=== PATIENT | female | born 1995 | race Caucasian/White ===

== ENCOUNTER 2016-09-14 09:25 | Emergency (ER) | payer OTHER ==
[2016-09-14] MEDS ORDERED: SODIUM CHLORIDE 0.9% 1,000 ML IV STA ×2 (09:28)
[2016-09-14] MEDS ORDERED: ONDANSETRON 4 MG/2 ML VIAL IVP STA (09:36)
[2016-09-14] MEDS ORDERED: HYDROmorphone 1 MG/ML 1 ML SYRINGE IVP STA (09:36)
--- NOTE | 2016-09-14 09:41 | ED ---
General Adult HPI - General Chief complaint: Abdominal Pain Stated complaint: appendix Time Seen by Provider: 09/14/16 09:28 Source: patient, RN notes reviewed Mode of arrival: wheelchair - History of Present Illness Initial comments: Patient's a 20-year-old female who presents emergency room today with a chief complaint of abdominal pain that started this morning after waking up. She describes it as sharp pain located in the right side of her abdomen. She states she's never had similar symptoms in the past. She states she does feel nauseated. Denies any other past medical history or surgical history. Patient denies any recent fever, chills, shortness of breath, chest pain, back pain, numbness or tingling, dysuria or hematuria, constipation or diarrhea, headaches or visual changes, or any other complaints. - Related Data Home Medications Medication Instructions Recorded Confirmed No Known Home Medications [No 03/14/15 03/14/15 Known Home Medications] Allergies Allergy/AdvReac Type Severity Reaction Status Date / Time No Known Allergies Allergy Verified 03/14/15 15:10 Review of Systems ROS Statement: Those systems with pertinent positive or pertinent negative responses have been documented in the HPI. ROS Other: All systems not noted in ROS Statement are negative. Past Medical History Past Medical History: No Reported History History of Any Multi-Drug Resistant Organisms: None Reported Past Surgical History: No Surgical Hx Reported Past Psychological History: No Psychological Hx Reported Smoking Status: Current every day smoker Past Alcohol Use History: None Reported Past Drug Use History: Marijuana General Exam - General Exam Comments Initial Comments: General: The patient is awake and alert, in mild distress. Eye: Pupils are equal, round and reactive to light, extra-ocular movements are intact. No nystagmus. There is normal conjunctiva bilaterally. No signs of icterus. Ears, nose, mouth and throat: There are moist mucous membranes and no oral lesions. Neck: The neck is supple, there is no tenderness or JVD. Cardiovascular: There is a regular rate and rhythm. No murmur, rub or gallop is appreciated. Respiratory: Lungs are clear to auscultation, respirations are non-labored, breath sounds are equal. No wheezes, stridor, rales, or rhonchi. Gastrointestinal: Normal appearance them. Normal bowel sounds. Abdomen soft on palpation. Patient does have mild tenderness right lower quadrant. Mild tenderness in epigastric. Increased tenderness right upper quadrant. Mild tenderness to the right CVA. No rebound tenderness. No guarding. Musculoskeletal: Normal ROM, no tenderness. Strength 5/5. Sensation intact. Pulses equal bilaterally 2+. Neurological: A&O x 3. CN II-XII intact, There are no obvious motor or sensory deficits. Coordination appears grossly intact. Speech is normal. Skin: Skin is warm and dry and no rashes or lesions are noted. Psychiatric: Cooperative, appropriate mood & affect, normal judgment. Course Vital Signs 09/14/16 09:27 Temperature 98.5 F Pulse Rate 91 Respiratory 20 Rate Blood Pressure 139/86 O2 Sat by Pulse 96 Oximetry Medical Decision Making - Medical Decision Making Case discussed in detail with attending physician Dr. Durand. Patient reexamined at this time shows no signs of distress. She is resting comfortably in the stretcher. Abdomen soft on palpation. His minimal to no tenderness at this time in the right side of the abdomen. Patient had both some mild right upper and some mild right lower quadrant tenderness. Patient does admit that this pain woke her up this morning. She states she's feeling much better at this time. She was given pain medicine here in emergency room. Her labs been reviewed and shows no elevated white count. Negative lactic acid. Her urinalysis shows a few white cells but a large amount of squamous cells as well. Urine culture will be added and pending as patient has no symptoms of dysuria or urinary tract infection. Results were discussed in detail with the patient and further options of a CT of the abdomen and pelvis were also discussed. Risk and benefits of CT were discussed. At this time she states she 's feeling comfortable and would rather wait on CAT scan. She states she would like to be discharged home will return if symptoms increase or worsen. - Lab Data Result diagrams: 09/14/16 09:33 09/14/16 09:33 Lab Results 09/14/16 09/14/16 09/14/16 Range/Units 09:33 09:33 09:33 WBC 9.0 (3.8-10.6) k/uL RBC 5.08 (3.80-5.40) m/uL Hgb 15.8 (11.4-16.0) gm/dL Hct 47.6 H (34.0-46.0) % MCV 93.8 (80.0-100.0) fL MCH 31.1 (25.0-35.0) pg MCHC 33.2 (31.0-37.0) g/dL RDW 12.6 (11.5-15.5) % Plt Count 249 (150-450) k/uL Neutrophils % 40 % Lymphocytes % 49 % Monocytes % 4 % Eosinophils % 4 % Basophils % 1 % Neutrophils # 3.6 (1.3-7.7) k/uL Lymphocytes # 4.4 (1.0-4.8) k/uL Monocytes # 0.4 (0-1.0) k/uL Eosinophils # 0.3 (0-0.7) k/uL Basophils # 0.1 (0-0.2) k/uL Sodium 143 (137-145) mmol/L Potassium 3.8 (3.5-5.1) mmol/L Chloride 108 H (98-107) mmol/L Carbon Dioxide 24 (22-30) mmol/L Anion Gap 11 mmol/L BUN 12 (7-17) mg/dL Creatinine 0.68 (0.52-1.04) mg/dL Est GFR (MDRD) Af Amer >60 (>60 ml/min/1.73 sqM) Est GFR (MDRD) Non-Af >60 (>60 ml/min/1.73 sqM) Glucose 95 (74-99) mg/dL Plasma Lactic Acid Miguel 1.0 (0.7-2.0) mmol/L Calcium 9.9 (8.4-10.2) mg/dL Total Bilirubin 1.0 (0.2-1.3) mg/dL AST 22 (14-36) U/L ALT 26 (9-52) U/L Alkaline Phosphatase 53 (38-126) U/L Total Protein 8.2 (6.3-8.2) g/dL Albumin 5.2 H (3.5-5.0) g/dL Amylase 97 (30-110) U/L Lipase 292 (23-300) U/L Urine Color Urine Appearance (Clear) Urine pH (5.0-8.0) Ur Specific [place] (1.001-1.035) Urine Protein (Negative) Urine Glucose (UA) (Negative) Urine Ketones (Negative) Urine Blood (Negative) Urine Nitrite (Negative) Urine Bilirubin (Negative) Urine Urobilinogen (<2.0) mg/dL Ur Leukocyte Esterase (Negative) Urine WBC (0-5) /hpf Ur Squamous Epith Cells (0-4) /hpf Urine Bacteria (None) /hpf Urine Mucus (None) /hpf Urine HCG, Qual (Not Detectd) 09/14/16 09/14/16 Range/Units 09:38 09:38 WBC (3.8-10.6) k/uL RBC (3.80-5.40) m/uL Hgb (11.4-16.0) gm/dL Hct (34.0-46.0) % MCV (80.0-100.0) fL MCH (25.0-35.0) pg MCHC (31.0-37.0) g/dL RDW (11.5-15.5) % Plt Count (150-450) k/uL Neutrophils % % Lymphocytes % % Monocytes % % Eosinophils % % Basophils % % Neutrophils # (1.3-7.7) k/uL Lymphocytes # (1.0-4.8) k/uL Monocytes # (0-1.0) k/uL Eosinophils # (0-0.7) k/uL Basophils # (0-0.2) k/uL Sodium (137-145) mmol/L Potassium (3.5-5.1) mmol/L Chloride (98-107) mmol/L Carbon Dioxide (22-30) mmol/L Anion Gap mmol/L BUN (7-17) mg/dL Creatinine (0.52-1.04) mg/dL Est GFR (MDRD) Af Amer (>60 ml/min/1.73 sqM) Est GFR (MDRD) Non-Af (>60 ml/min/1.73 sqM) Glucose (74-99) mg/dL Plasma Lactic Acid Miguel (0.7-2.0) mmol/L Calcium (8.4-10.2) mg/dL Total Bilirubin (0.2-1.3) mg/dL AST (14-36) U/L ALT (9-52) U/L Alkaline Phosphatase (38-126) U/L Total Protein (6.3-8.2) g/dL Albumin (3.5-5.0) g/dL Amylase (30-110) U/L Lipase (23-300) U/L Urine Color Yellow Urine Appearance Turbid H (Clear) Urine pH 5.5 (5.0-8.0) Ur Specific [place] 1.025 (1.001-1.035) Urine Protein 1+ H (Negative) Urine Glucose (UA) Negative (Negative) Urine Ketones Negative (Negative) Urine Blood Trace H (Negative) Urine Nitrite Negative (Negative) Urine Bilirubin Negative (Negative) Urine Urobilinogen <2.0 (<2.0) mg/dL Ur Leukocyte Esterase Large H (Negative) Urine WBC 11 H (0-5) /hpf Ur Squamous Epith Cells 45 H (0-4) /hpf Urine Bacteria Rare H (None) /hpf Urine Mucus Rare H (None) /hpf Urine HCG, Qual Not Detected (Not Detectd) Disposition Clinical Impression: Abdominal pain Disposition: HOME SELF-CARE Condition: Good Instructions: Abdominal Pain (ED) Additional Instructions: Please use Tylenol as discussed. Please follow-up with family doctor in the next 2 days of symptoms have not improved. Please return to emergency room if the symptoms increase or worsen or for any other concerns. Referrals: Heron Vanegas MD [Primary Care Provider] - 1-2 days Time of Disposition: 10:39
[2016-09-14 10:01] LABS: Basophils # (A) 0.1 k/uL (0-0.2); Basophils % (A) 1 %; CHCM 34.3; Eosinophils # (A) 0.3 k/uL (0-0.7); Eosinophils % (A) 4 %; HCT 47.6 % (34.0-46.0); HDW 2.25; HGB 15.8 gm/dL (11.4-16.0); Luc % (Auto) 2; Lymphocytes # (A) 4.4 k/uL (1.0-4.8); Lymphocytes % (A) 49 %; MCH 31.1 pg (25.0-35.0); MCHC 33.2 g/dL (31.0-37.0); MCV 93.8 fL (80.0-100.0); Mean Platelet Volume 6.7; Monocytes # (A) 0.4 k/uL (0-1.0); Monocytes % (A) 4 %; Neutrophils # (A) 3.6 k/uL (1.3-7.7); Neutrophils % (A) 40 %; RBC 5.08 m/uL (3.80-5.40); RDW 12.6 % (11.5-15.5); WBC (Perox) 8.15
[2016-09-14 10:06] LABS: Appearance,Urine Turbid (Clear); Bacteria,Urine Rare /hpf; Bilirubin,Urine Negative (Negative); Glucose,Urine (UA) Negative (Negative); Ketones,Urine Negative (Negative); Leukocyte Esterase,Urine Large (Negative); Mucus,Urine Rare /hpf; Nitrite,Urine Negative (Negative); PH, Urine 5.5 (5.0-8.0); Particle Count 47934; Protein,Urine 1+ (Negative); Specific Gravity,Urine 1.025 (1.001-1.035); Squamous Epithelial Cell,Urine 45 /hpf (0-4); UA Billing (MACRO vs. MICRO) MICRO; Urobilinogen,Urine <2.0 mg/dL (<2.0); WBC,Urine 11 /hpf (0-5)
[2016-09-14 10:13] LABS: ALT 26 U/L (9-52); AST 22 U/L (14-36); Alkaline Phosphatase 53 U/L (38-126); Amylase 97 U/L (30-110); Anion Gap 11 mmol/L; Blood Urea Nitrogen 12 mg/dL (7-17); Calcium 9.9 mg/dL (8.4-10.2); Carbon Dioxide 24 mmol/L (22-30); Chloride 108 mmol/L (98-107); Glucose 95 mg/dL (74-99); Non-African American GFR(MDRD) >60 (>60 ml/min/1.73 sqM); Potassium 3.8 mmol/L (3.5-5.1); Sodium 143 mmol/L (137-145); Total Protein 8.2 g/dL (6.3-8.2)
--- NOTE | 2016-09-14 10:39 | XR ---
EXAMINATION TYPE: XR KUB DATE OF EXAM: 09/14/2016 CLINICAL HISTORY: Right-sided abdominal pain today. TECHNIQUE: 2 upright KUB images of the abdomen are obtained COMPARISON: Abdominal x-ray May 29, 2012. FINDINGS: Scattered gas is seen in non-distended small bowel loops. Gas and fecal material is seen in non-distended colon. Dextroconvex scoliotic curvature centered in the upper lumbar spine is redemo nstrated. Spina bifida defect S1 levels again seen. No pneumoperitoneum is present. No suspicious josesito cifications are seen. Lung bases are clear. IMPRESSION: Overall nonobstructive bowel gas pattern. No significant change from prior.
[2016-09-14 10:53] VITALS: BP 110/55; PULSE 67; RESP 16; TEMP 97.7
== END 2016-09-14 10:53 | disposition home or self-care (01) ==
LOC: EC 09:25
DX: R10.11 Right upper quadrant pain (principal); R10.31 Right lower quadrant pain; R11.0 Nausea; F17.200 Nicotine dependence, unspecified, uncomplicated
CPT/HCPCS: 36415; 80053; 82150; 83605; 83690; 85025; 81001; 81025; 74000; 99284; 96374; 96375; 96361; J2405; J1170

== ENCOUNTER → 2017-04-17 | Outpatient (CLI) | payer OTHER ==
--- NOTE | 2017-04-17 23:31 | EEG ---
ELECTROENCEPHALOGRAM REPORT DATE OF EE04/17/2017. REFERRING PHYSICIAN: Dr. Godinez. INTERPRETING PHYSICIAN: Dr. Pattie Treviño. INDICATION FOR EXAMINATION: This patient is a 21-year-old female being evaluated for syncopal episode and collapse. Patient has been experiencing 2-3 syncopal episodes per day with symptoms of aura, loss of consciousness and shaking of both arms. Most recent episode lasted 1-1.5 minutes in duration with loss of consciousness. AGE: 21. EEG FINDINGS: A routine 21-channel awake digital EEG recording was accomplished utilizing the 10-20 international system with bipolar and referential montages. The background activity in the most alert resting state consists of a low to medium amplitude, fairly well- developed and well-sustained 7-8 Hz activity over the posterior head region. This posterior rhythm attenuates to eye opening. There is a small amount of low amplitude 18-20 Hz beta activity seen maximally over the anterior head regions. Muscle and movement artifact was observed on a few occasions during the tracing. Hyperventilation was completed. During hyperventilation, there is evidence for bitemporal sharp wave discharge lasting 4 seconds in duration. Photic stimulation at flash frequencies of 2-30 Hz produced a good symmetrical occipital driving response. The main feature of this tracing is the occurrence during hyperventilation of small epileptiform discharges emanating from the bitemporal region at T3 and T4 electrodes. IMPRESSION: This EEG is abnormal due to the finding of epileptiform discharges occurring bitemporally during hyperventilation. 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 Further evaluation with neuro imaging and followup is highly recommended. Clinical correlation is recommended. MMODL / IJN: [id number] /
== END | disposition home or self-care (01) ==
LOC: NEUROMAIN 13:07
PROVIDERS: ATTEND Family Medicine
DX: R94.01 Abnormal electroencephalogram [EEG] (principal)
CPT/HCPCS: 95816

== ENCOUNTER 2018-08-30 13:19 | Outpatient (CLI) | payer OTHER ==
[2018-08-30 15:05] LABS: Amorphous Sediment,Urine Occasional /hpf; Appearance,Urine Cloudy (Clear); Bacteria,Urine Occasional /hpf; Bilirubin,Urine Negative (Negative); Blood,Urine Negative (Negative); Color,Urine Yellow; Glucose,Urine (UA) Negative (Negative); Ketones,Urine Negative (Negative); Leukocyte Esterase,Urine Moderate (Negative); Mucus,Urine Rare /hpf; Nitrite,Urine Negative (Negative); PH, Urine 7.5 (5.0-8.0); Protein,Urine Negative (Negative); Specific Gravity,Urine 1.013 (1.001-1.035); Squamous Epithelial Cell,Urine 15 /hpf (0-4); Urobilinogen,Urine <2.0 mg/dL (<2.0); WBC,Urine 127 /hpf (0-5)
[2018-08-30] MEDS ORDERED: CEPHALEXIN 500 MG CAP PO STA (16:21)
--- NOTE | 2018-09-02 08:36 | P.MSEPDOC ---
Presenting Problems - Arrival Data Date of Arrival on Unit: 08/30/18 Time of Arrival on Unit: 13:19 Mode of Transport: Ambulatory - Complaint OB-Reason for Admission/Chief Complaint: Observation/Evaluation Comment: abd pain Medical History - Information : 2 Para: 1 Term: 1 : 0 Abortions: Spontaneous or Elective: 0 Number of Living Children: 1 Physician Notification (Pre) - Physician Notified Physician Notified Date: 08/30/18 Physician Notified Time: 16:15 Physician/Practitioner Notifed:: Dhiraj - Notification Comment Comment: eval done by Dr. Hearn Disposition - Disposition OB Disposition: Discharge to home Discharge Date: 08/30/18 Discharge Time: 16:40 I agree with the RN Medical Screening Exam: Yes Risk & Benefit of care provided described in d/c instruction: Yes Diagnosis: RELATED CONDITIONS, UNSP, UNSPECIFIED TRIMESTER
== END 2018-08-30 16:40 | disposition home or self-care (01) ==
LOC: FBPOP 13:19
PROVIDERS: ATTEND Obstetrics & Gynecology
DX: O26.90 Pregnancy related conditions, unspecified, unspecified trimester (principal)
CPT/HCPCS: 59025; 82731; 81001; G0463; 99213

== ENCOUNTER → 2018-09-11 | Outpatient (CLI) | payer OTHER ==
[2018-09-11 12:34] LABS: Glucose 3 Hour, Gest 82 mg/dL
== END | disposition home or self-care (01) ==
LOC: LABWHC1 08:09
PROVIDERS: ATTEND Obstetrics & Gynecology
DX: O99.810 Abnormal glucose complicating pregnancy (principal); Z3A.00 Weeks of gestation of pregnancy not specified
CPT/HCPCS: 36415; 82951; 82952

== ENCOUNTER 2018-10-20 12:46 | Emergency (ER) | payer OTHER ==
[2018-10-20 12:57] VITALS: BP 115/80; PULSE 102; RESP 20; TEMP 97.5
--- NOTE | 2018-10-20 14:56 | ED ---
General Adult HPI - General Chief complaint: Extremity Problem,Nontraumatic Stated complaint: 36 WEEKS PREG, PAINFUL AND BLISTERING FEET Time Seen by Provider: 10/20/18 13:28 Source: patient, RN notes reviewed Mode of arrival: ambulatory Limitations: no limitations - History of Present Illness Initial comments: 23-year-old female currently 36 weeks presents to the emergency department for a chief complaint of pain to the bilateral feet. Patient states she has had this for over one month. States she tried to put bacitracin on it last night but it did not help. Denies fevers or chills. Denies rash anywhere else. Does admit to fungus on toenails. Denies any vaginal bleeding or discharge. Denies any related complaints.Patient has no other complaints at this time including shortness of breath, chest pain, abdominal pain, nausea or vomiting, headache, or visual changes. - Related Data Home Medications Medication Instructions Recorded Confirmed Pnv No.95/Ferrous Fum/Folic AC 1 tab PO DAILY 08/30/18 10/20/18 [ Multivitamin Tablet] Previous Rx's Medication Instructions Recorded Clotrimazole Cream [Lotrimin Cream] 1 applic TOPICAL BID 14 Days gm 10/20/18 Allergies Allergy/AdvReac Type Severity Reaction Status Date / Time No Known Allergies Allergy Verified 10/20/18 13:28 Review of Systems ROS Statement: Those systems with pertinent positive or pertinent negative responses have been documented in the HPI. ROS Other: All systems not noted in ROS Statement are negative. Past Medical History Past Medical History: No Reported History History of Any Multi-Drug Resistant Organisms: None Reported Past Surgical History: No Surgical Hx Reported Past Psychological History: No Psychological Hx Reported Smoking Status: Current some day smoker Past Alcohol Use History: None Reported Past Drug Use History: None Reported General Exam Limitations: no limitations General appearance: alert, in no apparent distress Head exam: Present: atraumatic, normocephalic, normal inspection Eye exam: Present: normal appearance, PERRL, EOMI. Absent: scleral icterus, conjunctival injection, periorbital swelling ENT exam: Present: normal exam, mucous membranes moist Neck exam: Present: normal inspection, full ROM. Absent: tenderness, meningismus, lymphadenopathy Respiratory exam: Present: normal lung sounds bilaterally. Absent: respiratory distress, wheezes, rales, rhonchi, stridor Cardiovascular Exam: Present: regular rate, normal rhythm, normal heart sounds. Absent: systolic murmur, diastolic murmur, rubs, gallop, clicks Extremities exam: Present: normal capillary refill (Capillary custody seconds, DP pulse 2+), other (Scaling rash noted to the bilateral plantar feet along the arches of the feet consistent with tinea pedis). Absent: joint swelling (No significant Edema noted of the bilateral feet, no erythema.) Neurological exam: Present: alert, oriented X3, CN II-XII intact Course Vital Signs 10/20/18 12:55 Temperature 97.5 F L Pulse Rate 102 H Respiratory 20 Rate Blood Pressure 115/80 O2 Sat by Pulse 97 Oximetry Medical Decision Making - Medical Decision Making 23-year-old female presents to the emergency department for a chief complaint of rash noted to the bilateral plantar feet times one month. States she tried to put antibiotic ointment on it yesterday but it did not help. States she has not followed up with her own doctor for this because she tried to follow-up with her INTELLIGENCE OFFICER who is out of town. Patient states it is painful to stand to go to work so she came here for a note. On exam she does have a scaling rash noted to the bilateral lower feet along the arches. No other complaints. She does have fungal infection noted to the great toenails. Neurovascular status intact. Patient likely has tinea pedis. Will be given clotrimazole as this is safe in . Will follow up with primary care in 1-2 days as well as her INTELLIGENCE OFFICER. She will return here if she has any worsening symptoms. Disposition Clinical Impression: Tinea pedis Disposition: HOME SELF-CARE Condition: Good Instructions (If sedation given, give patient instructions): Athlete's Foot (ED) Additional Instructions: Please use cream as directed. Please follow-up with your INTELLIGENCE OFFICER and primary care in 1-2 days for recheck. Please return here if you have any worsening symptoms. Prescriptions: Clotrimazole Cream [Lotrimin Cream] 1 applic TOPICAL BID 14 Days gm Is patient prescribed a controlled substance at d/c from ED?: No Referrals: Jaziel Godinez MD [Primary Care Provider] - 1-2 days Time of Disposition: 14:54
== END 2018-10-20 15:02 | disposition home or self-care (01) ==
LOC: EC 12:46
DX: O99.713 Diseases of the skin and subcutaneous tissue complicating pregnancy, third trimester (principal); B35.3 Tinea pedis; O99.333 Smoking (tobacco) complicating pregnancy, third trimester; F17.200 Nicotine dependence, unspecified, uncomplicated; Z3A.36 36 weeks gestation of pregnancy
CPT/HCPCS: 99283